=== PATIENT | female | born 1990 | race American Indian/Alaskan Native ===

== ENCOUNTER 2020-04-22 14:40 | Emergency (ER) | payer SELFPAY ==
[2020-04-22] MEDS ORDERED: ONDANSETRON 4 MG/2 ML INJ IV ONE (15:12)
[2020-04-22] MEDS ORDERED: MORPHINE 4 MG/1 ML INJ IV ONE (15:12)
[2020-04-22] MEDS ORDERED: SODIUM CHLORIDE 0.9% 1000 ML 2,000 ML IV ONE (15:12)
--- NOTE | 2020-04-22 15:13 | Emergency Department Report ---
<AIDEN GONZALEZ - Last Filed: 04/22/20 19:17> ED General Adult HPI - General Chief complaint: Nausea/Vomiting/Diarrhea Stated complaint: NASEA/VOMITING PRIOR TO CHEMO PUI?: No Time Seen by Provider: 04/22/20 14:55 Source: patient, EMS ( EMS documentation not available at time of chart dictati on ), RN notes reviewed Mode of arrival: Stretcher Limitations: No Limitations - History of Present Illness Initial comments: The patient was evaluated in the emergency department for symptoms described in the history of present illness. He/she was evaluated in the context of the global COVID-19 pandemic, which necessitated consideration that the patient might be at risk for infection with the virus that causes COVID-19. Institutional protocols and algorithms that pertain to the evaluation of patients at risk for COVID-19 are in a state of rapid change based on information released by regulatory bodies including the CDC and federal and state organizations. These policies and algorithms were followed during the patient's care in the emergency department. Please note that these policies, procedures and recommendations changed on a rapid basis. During the history and physical examination, I am trustee of estate and escorted by Ms. Lara Luna The patient is a 29-year-old female. She is not known to myself previously. She is currently receiving chemotherapy for breast cancer. She reports that she has stage III breast cancer. This is her third round of chemotherapy. She does not know the name of the specific chemotherapy agent that she takes. Her oncologist is Dr. CAICEDO She received her last chemotherapy earlier on this week, and thus presents with 4 to 5 days of intractable nausea and vomiting and abdominal cramping. Denies headache, neck pain, chest pain, shortness of breath, dysuria. Has mild diffuse abdominal cramping, reports that she is not . States symptoms are much improved with fluids, pain medication, nausea medication here in the emergency room. -: Gradual, days(s) Location: abdomen Radiation: non-radiation Quality: aching Consistency: constant Improves with: medication, rest Worsens with: eating - Related Data Previous Rx's Medication Instructions Recorded Last Taken Type Saritha Root [Saritha] 250 mg PO QID PRN #30 capsule 04/22/20 Unknown Rx Ondansetron [Zofran Odt] 4 mg PO Q8HR PRN #20 tab.rapdis 04/22/20 Unknown Rx Potassium Chloride 20 meq PO QDAY #30 liquid 04/22/20 Unknown Rx Allergies Allergy/AdvReac Type Severity Reaction Status Date / Time No Known Allergies Allergy Verified 02/22/15 02:16 ED Review of Systems Constitutional: malaise, weakness. denies: fever Eyes: denies: eye discharge ENT: denies: epistaxis Respiratory: denies: cough Cardiovascular: denies: chest pain Gastrointestinal: abdominal pain, nausea, vomiting, diarrhea Genitourinary: denies: dysuria Musculoskeletal: myalgia Skin: denies: lesions Neurological: weakness Hematological/Lymphatic: denies: easy bleeding ED Past Medical Hx - Past Medical History Hx Hypertension: No Hx Congestive Heart Failure: No Hx Diabetes: No Hx Deep Vein Thrombosis: No Hx Renal Disease: No Hx of Cancer: Yes (Breast Chemo 04-12) Hx Sickle Cell Disease: No Hx Seizures: No Hx Asthma: No Hx COPD: No Hx HIV: No - Surgical History Past Surgical History?: No - Social History Smoking Status: Never Smoker Substance Use Type: None - Medications Home Medications: Home Medications Medication Instructions Recorded Confirmed Last Taken Type Saritha Root [Saritha] 250 mg PO QID PRN #30 capsule 04/22/20 Unknown Rx Ondansetron [Zofran Odt] 4 mg PO Q8HR PRN #20 tab.rapdis 04/22/20 Unknown Rx Potassium Chloride 20 meq PO QDAY #30 liquid 04/22/20 Unknown Rx ED Physical Exam - General Limitations: No Limitations General appearance: alert, anxious - Head Head exam: Present: atraumatic, normocephalic - Eye Eye exam: Present: normal appearance, EOMI. Absent: nystagmus - ENT ENT exam: Present: mucous membranes dry, normal external ear exam - Neck Neck exam: Present: normal inspection, full ROM. Absent: tenderness, meningismus - Respiratory Respiratory exam: Present: normal lung sounds bilaterally. Absent: respiratory distress, wheezes, rales, rhonchi, stridor - Cardiovascular Cardiovascular Exam: Present: normal rhythm, tachycardia, normal heart sounds. Absent: systolic murmur, diastolic murmur, rubs, gallop - GI/Abdominal GI/Abdominal exam: Present: soft. Absent: distended, tenderness, guarding, rebound, rigid, pulsatile mass - Extremities Exam Extremities exam: Present: normal inspection, full ROM, other (2+ pulses noted in the bilateral upper and lower extremities. There is no palpable cord. negative Homans sign. Muscular compartments are soft. The pelvis is stable.). Absent: pedal edema, calf tenderness - Back Exam Back exam: Present: normal inspection, full ROM. Absent: tenderness, CVA tenderness (R), CVA tenderness (L), paraspinal tenderness, vertebral tenderness - Neurological Exam Neurological exam: Present: alert, other (No facial droop. Tongue midline. Extraocular movements intact bilaterally. Facial sensation intact to light george ch in V1, V2, V3 distribution bilaterally. 5 and a 5 strength in 4 extremities. Sensation intact to light touch in 4 extremities.). Absent: motor sensory deficit - Psychiatric Psychiatric exam: Present: anxious - Skin Skin exam: Present: warm, dry, intact, normal color. Absent: rash ED Course - Reevaluation(s) Reevaluation #1: 04/22/20 16:26 Differential diagnosis, including but not limited to: Dehydration, electrolyte derangement, chemotherapy adverse events Assessment and plan: 29-year-old female who was tachycardic with a blood pressure in the high 90s, awake, alert, oriented, mentating appropriately, with nausea, vomiting and diarrhea, in the context of chemotherapy. Abdomen minimally tender, without rebound, guarding or peritoneal signs, likely secondary to nausea, vomiting and diarrhea. She felt much improved after initial round of IV fluids, pain medication and nausea medication, however, she was found to be markedly dehydrated, with evidence of anion gap acidosis, and hypo-kalemia. Furthermore, her EKG shows a prolonged QTC. Patient will be given additional fluids, and we will give her an oral challenge, and we will reassess. 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 She will be given oral lidocaine in anticipation of oral challenge with potassium supplementation. Repeat EKG, and repeat basic metabolic panel are ordered after initial interventions to assess for interval change. Reevaluation #2: 04/22/20 18:55 Patient feeling much improved. EKG #2 shows market improvement in QT, QTC. Lead pressure stable, patient now tolerating liquid feeds. Repeat basic metabolic panel is pending at this time Heart rate 95 bpm, blood pressure 113/65. Reevaluation #3: 04/22/20 19:17 Repeat basic metabolic panel shows improvement in anion gap, however, CO2 is decreased, likely secondary to nausea and vomiting prior to arrival. Additional IV fluids ordered. Repeat basic metabolic panel is ordered to assess CO2. care will be transferred to Dr Samuel Parisi to follow up ED Medical Decision Making - Lab Data Result diagrams: 04/22/20 15:24 04/22/20 18:23 Vital Signs 04/22/20 14:52 Temperature 97.6 F Pulse Rate 96 H Respiratory 16 Rate Blood Pressure 110/72 O2 Sat by Pulse 97 Oximetry Lab Results 04/22/20 04/22/20 04/22/20 Range/Units 15:24 15:24 15:24 WBC 11.2 H (4.5-11.0) K/mm3 RBC 4.63 (3.65-5.03) M/mm3 Hgb 13.5 (10.1-14.3) gm/dl Hct 40.2 (30.3-42.9) % MCV 87 (79-97) fl MCH 29 (28-32) pg MCHC 33 (30-34) % RDW 16.8 H (13.2-15.2) % Plt Count 192 (140-440) K/mm3 PT 15.3 H (12.2-14.9) Sec. INR 1.19 H (0.87-1.13) Sodium 135 L (137-145) mmol/L Potassium 3.0 L (3.6-5.0) mmol/L Chloride 91.2 L (98-107) mmol/L Carbon Dioxide 19 L (22-30) mmol/L Anion Gap 28 mmol/L BUN 13 (7-17) mg/dL Creatinine 0.7 (0.6-1.2) mg/dL Estimated GFR > 60 ml/min BUN/Creatinine Ratio 19 % Glucose 93 (65-100) mg/dL Calcium 9.3 (8.4-10.2) mg/dL Magnesium 2.00 (1.7-2.3) mg/dL Total Bilirubin 0.50 (0.1-1.2) mg/dL AST 24 (5-40) units/L ALT 19 (7-56) units/L Alkaline Phosphatase 110 (35-129) units/L Total Creatine Kinase 45 (30-135) units/L Total Protein 7.9 (6.3-8.2) g/dL Albumin 4.6 (3.9-5) g/dL Albumin/Globulin Ratio 1.4 % Lipase 60 (13-60) units/L HCG, Quant (0-4) mIU/mL 04/22/20 Range/Units 15:24 WBC (4.5-11.0) K/mm3 RBC (3.65-5.03) M/mm3 Hgb (10.1-14.3) gm/dl Hct (30.3-42.9) % MCV (79-97) fl MCH (28-32) pg MCHC (30-34) % RDW (13.2-15.2) % Plt Count (140-440) K/mm3 PT (12.2-14.9) Sec. INR (0.87-1.13) Sodium (137-145) mmol/L Potassium (3.6-5.0) mmol/L Chloride (98-107) mmol/L Carbon Dioxide (22-30) mmol/L Anion Gap mmol/L BUN (7-17) mg/dL Creatinine (0.6-1.2) mg/dL Estimated GFR ml/min BUN/Creatinine Ratio % Glucose (65-100) mg/dL Calcium (8.4-10.2) mg/dL Magnesium (1.7-2.3) mg/dL Total Bilirubin (0.1-1.2) mg/dL AST (5-40) units/L ALT (7-56) units/L Alkaline Phosphatase (35-129) units/L Total Creatine Kinase (30-135) units/L Total Protein (6.3-8.2) g/dL Albumin (3.9-5) g/dL Albumin/Globulin Ratio % Lipase (13-60) units/L HCG, Quant < 2 (0-4) mIU/mL - EKG Data -: EKG Interpreted by [facility] EKG shows normal: sinus rhythm Rate: tachycardia - EKG Data When compared to previous EKG there are: previous EKG unavailable 04/22/20 16:26 Sinus rhythm, tachycardia, 101 bpm, there is a borderline leftward axis deviation, there is high left ventricular voltage, the QTC is prolonged, there is atrial enlargement, this EKG is abnormal, the EKG is not a STEMI ED Disposition Clinical Impression: Dehydration, Hypokalemia Disposition: DC-01 TO HOME OR SELFCARE Is pt being admited?: No Does the pt Need Aspirin: No Condition: Good Additional Instructions: Advance diet as tolerated. Minimize/avoid consumption of Motrin, ibuprofen, Naprosyn, Aleve, heavy and spicy foods. Take the nausea medication as needed and directed, when drinking fluids, drink water, Pedialyte, patient may also consider salty chicken soup, or Gatorade mixed with water, 50-50 percent respectively. Patient to start with gentle foods, such as bread, rice, apples and toast. Please follow-up with a primary care doctor or your oncologist within the next week. Both saritha and Zofran are prescribed to treat nausea and vomiting. Please return to the emergency room right away with new pain, worsened pain, migration of pain, projectile vomiting, change in mental status, confusion, inability to tolerate liquid feeds, new, worsened or different symptoms not present on the initial emergency room evaluation. Prescriptions: Saritha Root [Saritha] 250 mg PO QID PRN #30 capsule PRN Reason: Nausea Potassium Chloride 20 meq PO QDAY #30 liquid Ondansetron [Zofran Odt] 4 mg PO Q8HR PRN #20 tab.rapdis PRN Reason: Nausea Referrals: PRIMARY CARE, [Primary Care Provider] - 3-5 Days KEVYN BLAKE MD [Staff Physician] - 3-5 Days NEO CANELA MD [Staff Physician] - 3-5 Days <QING PARISI - Last Filed: 04/22/20 21:47> ED Review of Systems ROS: Stated complaint: NAUSEA/VOMITING PRIOR TO CHEMO Other details as noted in HPI ED Course Vital Signs 04/22/20 04/22/20 14:52 19:05 Temperature 97.6 F Pulse Rate 96 H 86 Respiratory 16 16 Rate Blood Pressure 110/72 Blood Pressure 116/66 [Left] O2 Sat by Pulse 97 100 Oximetry ED Medical Decision Making - Lab Data Result diagrams: 04/22/20 15:24 04/22/20 20:40 - Medical Decision Making I assumed care of patient from my colleague Dr. Yusuf. On repeat BMP, anion gap has decreased from 28-22. Bicarbonate is largely unchanged. Patient feels much better. She has tolerated oral intake. With shared clinical decision making, she desires to be discharged home at this time. Hypokalemia and hypochloremia has improved. Patient understands to return for new or worsening symptoms. Critical care attestation.: If time is entered above; I have spent that time in minutes in the direct care of this critically ill patient, excluding procedure time. ED Disposition Is pt being admited?: No Does the pt Need Aspirin: No
[2020-04-22 15:51] LABS: Hematocrit 40.2 % (30.3-42.9); Hemoglobin 13.5 gm/dl (10.1-14.3); Mean Corpuscular HGB Conc 33 % (30-34); Mean Corpuscular Volume 87 fl (79-97); Platelet Count 192 K/mm3 (140-440); Red Blood Count 4.63 M/mm3 (3.65-5.03); Red Cell Distribution Width 16.8 % (13.2-15.2)
[2020-04-22 16:00] LABS: INR 1.19 (0.87-1.13)
[2020-04-22 16:03] LABS: Alanine Aminotransferase 19 units/L (7-56); Albumin 4.6 g/dL (3.9-5); Blood Urea Nitrogen 13 mg/dL (7-17); Calcium 9.3 mg/dL (8.4-10.2); Hemolysis Index 12
[2020-04-22 16:08] LABS: BUN/Creatinine Ratio 19
[2020-04-22] MEDS ORDERED: POTASSIUM CHLORIDE ER 20 MEQ TAB PO ONE (16:21)
[2020-04-22] MEDS ORDERED: LACTATED RINGERS 1,000 ML IV ONE ×2 (16:25)
[2020-04-22] MEDS ORDERED: LIDOCAINE VISCOUS 2% 15 ML ORAL LIQD MM STA (17:06)
[2020-04-22 17:27] LABS: Band Neutrophils # (Manual) 0.1 K/mm3; Basophils % (Manual) 0 % (0.0-1.8); Eosinophils % (Manual) 0 % (0.0-4.3); Total Cells Counted 100
[2020-04-22 17:28] LABS: Ovalocytes Rare; Platelet Estimate Consistent w Auto; Tear Drop Cells Rare
[2020-04-22 19:01] LABS: Blood Urea Nitrogen 11 mg/dL (7-17); Calcium 7.9 mg/dL (8.4-10.2); Hemolysis Index 21
[2020-04-22 19:12] LABS: BUN/Creatinine Ratio 16
[2020-04-22] MEDS ORDERED: D5W/0.45% NACL 1,000 ML IV SCH (20:00)
[2020-04-22 21:08] LABS: Blood Urea Nitrogen 8 mg/dL (7-17); Calcium 8.1 mg/dL (8.4-10.2); Hemolysis Index 3
[2020-04-22 21:17] LABS: BUN/Creatinine Ratio 11
[2020-04-22] MEDS: POTASSIUM CHLORIDE 10 MEQ 10 MEQ/100 ML BAG IV SCH ×3 (22:09→23:25)
[2020-04-22] MEDS ORDERED: POTASSIUM CHLORIDE 10 MEQ 10 MEQ/100 ML BAG IV ONE (23:21)
[2020-04-23] MEDS: POTASSIUM CHLORIDE 10 MEQ 10 MEQ/100 ML BAG IV SCH (00:21)
[2020-04-23 00:49] VITALS: BP 116/68
== END 2020-04-23 00:48 | disposition home or self-care (01) ==
LOC: ED 14:40
DX: E87.6 Hypokalemia (principal); E86.0 Dehydration; Z85.3 Personal history of malignant neoplasm of breast; Z79.899 Other long term (current) drug therapy
CPT/HCPCS: 36415; 80048; 80053; 82550; 83690; 83735; 84702; 85007; 85025; 85610; 93005; 96361; 96365; 96366; 96375; 99284; J2270; J2405; J3480; J7030; J7120